=== PATIENT | male | born 1990 | race Two or more races ===

== ENCOUNTER 2023-01-30 18:20 | Emergency (ER) | payer MEDICAID, OTHER ==
[~2023-01-30] VITALS: Ht 182.9 cm; Wt 113.6 kg
[~2023-01-30 18:20] MED LIST: OLAN10TA74 PO; OLAN5TAB52 PO
[2023-01-30] MEDS ORDERED: OLAN5TAB30 PO (18:37)
[2023-01-30] MEDS ORDERED: LITH300C3 PO (18:37)
[2023-01-30] MEDS ORDERED: DIPH-1080 PO (18:37)
[2023-01-30 23:33] VITALS: BP 129/70
== END 2023-01-31 02:41 | disposition home or self-care (01) ==
LOC: EMS 18:22
DX: R45.1 Restlessness and agitation (principal)
CPT/HCPCS: 99284; Z7502

== ENCOUNTER 2023-02-20 13:40 | Inpatient (IN) | payer MEDICAID ==
[~2023-02-20] VITALS: Ht 167.6 cm; Wt 238.0 kg
[~2023-02-20 13:40] MED LIST changes: +DIPH-1080 PO; +LITH300C3 PO; +OLAN5TAB30 PO
[2023-02-20] MEDS ORDERED: LORazepam 2 MG TABLET PO PRN (19:15)
[2023-02-20] MEDS ORDERED: HALOPERIDOL 5 MG TABLET PO PRN (19:15)
[2023-02-20] MEDS ORDERED: ZOLPIDEM TARTRATE 10 MG TABLET PO PRN (19:15)
[2023-02-20 20:01] VITALS: BP 112/66
[2023-02-21 02:31] VITALS: BP 118/69
[2023-02-21] MEDS ORDERED: ONDANSETRON HCL 4 MG TABLET PO PRN (06:45)
[2023-02-21] MEDS ORDERED: MAG HYDROX/AL HYDROX/SIMETH ES 30 ML SUSPENSION UDCUP PO PRN (06:45)
[2023-02-21] MEDS ORDERED: PETROLATUM,WHITE 28 GM JELLY TP PRN (06:45)
[2023-02-21] MEDS ORDERED: LOPERAMIDE HCL 2 MG CAPSULE PO PRN (06:45)
[2023-02-21] MEDS ORDERED: NICOTINE 14 MG/24 HOUR PATCH TD PRN (06:45)
[2023-02-21] MEDS ORDERED: GuaiFENesin/D-METHORPHAN [SUGAR-FREE] 200-20MG/10 ML SYRUP UDCUP PO PRN (06:45)
[2023-02-21] MEDS ORDERED: DOCUSATE SODIUM 100 MG CAPSULE PO PRN (06:45)
[2023-02-21] MEDS ORDERED: ALBUTEROL SULFATE HFA 90 MCG/PUFF 8 GM INHALER IH PRN (06:45)
[2023-02-21] MEDS ORDERED: ACETAMINOPHEN 325 MG TABLET PO PRN (06:45)
[2023-02-21] MEDS ORDERED: CloNIDine HCL 0.1 MG TABLET PO PRN (06:45)
[2023-02-21] MEDS ORDERED: MAGNESIUM HYDROXIDE SUSPENSION 30 ML UDCUP PO PRN (06:45)
[2023-02-21] MEDS ORDERED: IBUPROFEN 400 MG TABLET PO PRN (06:45)
[2023-02-21 07:48] LABS: BASOPHILS % (AUTO) 0.6 % (0.0-2.0); EOSINOPHILS % (AUTO) 4.5 % (1.0-6.0); HEMOGLOBIN 13.8 g/dL (13.5-17.5); LYMPHOCYTES % (AUTO) 36.1 % (22.0-44.0); MEAN CORPUSCULAR HEMOGLOBIN 31.3 pg (26.0-34.0); MEAN CORPUSCULAR HGB CONC 33.6 G/dL (31.0-37.0); MEAN CORPUSCULAR VOLUME 93 fL (80-100); MONOCYTES # (AUTO) 0.8 K/uL (0.1-1.0); MONOCYTES % (AUTO) 9.3 % (2.0-9.0); NEUTROPHILS # (AUTO) 4.1 K/uL (1.8-7.7); NEUTROPHILS % (AUTO) 49.5 % (40.0-70.0); PLATELET COUNT (AUTO) 214 K/uL (150-450); RED BLOOD CELL COUNT(AUTO) 4.39 MIL/uL (4.50-5.90); RED CELL DISTRIBUTION WIDTH 12.7 % (11.5-14.5)
[2023-02-21 08:12] LABS: ALANINE AMINOTRANSFERASE 21 U/L (12-78); ALBUMIN 3.4 g/dL (3.4-5.0); ALKALINE PHOSPHATASE 102 U/L (46-116); ANION GAP 6 mmol/L (8-16); ASPARTATE AMINOTRANSFERASE 18 U/L (15-37); BILIRUBIN,TOTAL 0.3 mg/dL (0.1-1.0); CALCIUM, TOTAL 8.6 mg/dL (8.8-10.5); CARBON DIOXIDE 29 mmol/L (22-29); CHLORIDE 108 mmol/L (98-107); CHOLESTEROL 109 mg/dL (131-200); CREATININE 1.02 mg/dL (0.60-1.30); FREE T4 (FREE THYROXINE) 1.01 ng/dL (0.76-1.46); GLOMERULAR FILTR. RATE CALC > 60 mL/min (>60); GLUCOSE,RANDOM 85 mg/dL (70-110); HDL CHOLESTEROL 27 mg/dL (40-60); LDL CHOL (CALC.) 57 mg/dL (0-130); SODIUM SERUM 143 mmol/L (136-145); THYROID STIMULATING HORMONE 4.34 uIU/mL (0.36-3.74); TOTAL PROTEIN, SERUM 6.5 g/dL (6.4-8.2); TRIGLYCERIDES 126 mg/dL (15-150); UREA NITROGEN, BLOOD 11 mg/dL (7-18)
[2023-02-21 08:20] LABS: HEMOGLOBIN A1C 4.8 % (3.8-5.6)
[2023-02-21 08:25] VITALS: BP 128/66
[2023-02-21] MEDS ORDERED: LITH600C5 PO (14:04)
[2023-02-21] MEDS ORDERED: PALI1560 IM (14:04)
[2023-02-21] MEDS: OLANZapine 5 MG RAPDIS TABLET PO SCH (16:41)
[2023-02-21] MEDS: LITHIUM CARBONATE 600 MG CAPSULE PO SCH (16:41)
[2023-02-21 16:42] VITALS: BP 120/66
[2023-02-21 20:17] VITALS: BP 125/71
[2023-02-22 07:53] LABS: APPEARANCE,URINE CLEAR (CLEAR); BILIRUBIN,URINE NEGATIVE (NEGATIVE); GLUCOSE, URINE (UA) NEGATIVE (NEGATIVE); KETONES,URINE NEGATIVE (NEGATIVE); LEUKOCYTE ESTERASE ,URINE NEGATIVE (NEGATIVE); NITRATE,URINE NEGATIVE (NEGATIVE); OCCULT BLOOD,URINE NEGATIVE (NEGATIVE); PROTEIN,URINE NEGATIVE (NEGATIVE); SPECIFIC GRAVITIY, URINE 1.017 (1.003-1.030); UROBILINOGEN,URINE <=1.0 mg/dL (<=1.0)
[2023-02-22 08:00] LABS: AMPHET/METH SCREEN,URINE NEGATIVE (NEGATIVE); BARBITURATE SCREEN, URINE NEGATIVE (NEGATIVE); BENZODIAZEPINES SCREEN,URINE NEGATIVE (NEGATIVE); CANNABINOID SCREEN,URINE NEGATIVE (NEGATIVE); COCAINE SCREEN,URINE NEGATIVE (NEGATIVE); METHADONE SCREEN, URINE NEGATIVE (NEGATIVE); OPIATE SCREEN,URINE NEGATIVE (NEGATIVE); PHENCYCLIDINE SCREEN,URINE NEGATIVE (NEGATIVE)
[2023-02-22 08:17] VITALS: BP 120/69
[2023-02-22] MEDS: OLANZapine 5 MG RAPDIS TABLET PO SCH ×2 (08:47→16:19)
[2023-02-22] MEDS: LITHIUM CARBONATE 600 MG CAPSULE PO SCH ×2 (08:47→16:19)
[2023-02-22 10:46] LABS: GLUCOMETER DEV NAME(LOC) POC.BV
[2023-02-22 20:08] VITALS: BP 112/69
[2023-02-23 08:22] VITALS: BP 111/63
[2023-02-23] MEDS: OLANZapine 5 MG RAPDIS TABLET PO SCH ×2 (08:25→16:30)
[2023-02-23] MEDS: LITHIUM CARBONATE 600 MG CAPSULE PO SCH ×2 (08:25→16:30)
[2023-02-23 20:39] VITALS: BP 118/63
[2023-02-24 08:26] VITALS: BP 130/68
[2023-02-24] MEDS: OLANZapine 5 MG RAPDIS TABLET PO SCH ×2 (08:30→16:30)
[2023-02-24] MEDS: LITHIUM CARBONATE 600 MG CAPSULE PO SCH ×2 (08:30→16:30)
[2023-02-25] MEDS ORDERED: OLAN5TAB52 PO (04:32)
[2023-02-25] MEDS ORDERED: LITH600C5 PO (04:32)
== END 2023-02-24 17:20 | disposition home or self-care (01) | DRG 750 ==
LOC: B2S 19:09
PROVIDERS: ADMIT Psychiatry & Neurology Psychiatry; ATTEND Psychiatry & Neurology Psychiatry
DX: F20.0 Paranoid schizophrenia (principal); E03.9 Hypothyroidism, unspecified; E66.01 Morbid (severe) obesity due to excess calories; Z68.38 Body mass index [BMI] 38.0-38.9, adult; G47.00 Insomnia, unspecified; J30.9 Allergic rhinitis, unspecified; Z20.822 Contact with and (suspected) exposure to COVID-19
CPT/HCPCS: 80053; 80061; 80307; 81003; 83036; 84439; 84443; 85025